=== PATIENT | male | born 1995 | race Caucasian/White ===

== ENCOUNTER 2021-05-23 10:31 | Emergency (ER) | payer OTHER ==
[~2021-05-23] VITALS: Ht 185.4 cm; Wt 101.7 kg
[2021-05-23] MEDS ORDERED: METHOCARBAMOL 750 MG TABLET ONE (10:58)
[2021-05-23] MEDS ORDERED: KETOROLAC 30 MG/1 ML ONE (10:58)
[2021-05-23] MEDS ORDERED: KETOROLAC 30 MG/1 ML IM ONE (11:00)
[2021-05-23] MEDS ORDERED: METHOCARBAMOL 750 MG TABLET PO ONE (11:00)
--- NOTE | 2021-05-23 11:03 | NUR ---
BREAK RN: PT NOT IN ROOM FOR MEDS. PRESUMABLEY IN XR.
--- NOTE | 2021-05-23 11:39 | NUR ---
PT REC'VD DISCHARGE INSTRUCTIONS AND EDUCATION. PT HAD NO FURTHER QUESTIONS. PT AMBULATED TO DC AREA, STEADY GAIT.
[2021-05-23 11:40] VITALS: BP 120/76
== END 2021-05-23 11:42 | disposition home or self-care (01) ==
LOC: ED 11:00
DX: S39.012A Strain of muscle, fascia and tendon of lower back, initial encounter (principal); M54.42 Lumbago with sciatica, left side; V49.49XA Driver injured in collision with other motor vehicles in traffic accident, initial encounter; Y93.89 Activity, other specified; Y92.89 Other specified places as the place of occurrence of the external cause; Y99.8 Other external cause status
CPT/HCPCS: 72110; 96372; 99283; J1885; J7512

== ENCOUNTER 2021-07-21 03:37 | Emergency (ER) | payer OTHER ==
[~2021-07-21] VITALS: Ht 185.4 cm; Wt 95.0 kg
--- NOTE | 2021-07-21 07:01 | NUR ---
REPORT FROM MIRZA CORTEZ AT THIS TIME, PT RESTING IN [facility] AT THIS TIME, ANAIS PALACIOS AT BEDSIDE FOR EVAL. PT STATING "I WANT A WORK NOTE AND TO GO HOME".
[2021-07-21 07:28] VITALS: BP 135/74
== END 2021-07-21 07:29 | disposition home or self-care (01) ==
LOC: ED 05:10
DX: S39.012A Strain of muscle, fascia and tendon of lower back, initial encounter (principal); F17.210 Nicotine dependence, cigarettes, uncomplicated; X58.XXXA Exposure to other specified factors, initial encounter; Y93.89 Activity, other specified; Y92.89 Other specified places as the place of occurrence of the external cause; Y99.8 Other external cause status
CPT/HCPCS: 99282

== ENCOUNTER 2021-08-26 09:35 | Emergency (ER) | payer OTHER ==
[~2021-08-26] VITALS: Ht 182.9 cm; Wt 90.0 kg
[2021-08-26 09:38] VITALS: BP 104/84
--- NOTE | 2021-08-26 09:53 | NUR ---
patient arrives with two days of sore throat. He thinks he has strep.
[2021-08-26] MEDS ORDERED: DEXAMETHASONE 4 MG/ML, 1ML PO ONE (10:00)
[2021-08-26] MEDS ORDERED: DEXAMETHASONE 4 MG/ML, 1ML ONE (10:16)
== END 2021-08-26 10:27 | disposition home or self-care (01) ==
LOC: ED 09:37
DX: J02.0 Streptococcal pharyngitis (principal); F17.210 Nicotine dependence, cigarettes, uncomplicated
CPT/HCPCS: 87081; 87880; 99283; 99406; J1100